=== PATIENT | male | born 1965 | race Caucasian/White ===

== ENCOUNTER 2023-06-30 12:38 | Outpatient (AMB) | payer BC, SELFPAY ==
--- NOTE | 2023-06-30 12:40 | MHC.OFFVIS ---
Intake Vital Signs 06/30/23 12:44 Height 6 ft 1.5 in Weight 291 lb BMI 37.9 BP 138/76 Blood Pressure Location Lt brachial Position Sitting Pulse 84 Intake Visit Reasons: colonoscopy screening Intake Note: Patient new consult for pre colonoscopy screening. Patient denies any GI issues. Rn Invasive Required: No Accompanied by: Self / Same As Patient Allergies No Known Allergies Allergy (Verified 06/30/23 12:40) HPI HPI Comments History of Present Illness Details 58-year-old male history of ulcerative colitis referred for screening colonoscopy in to [facility]- DX about 25-30 years ago- / [facility]- [place]- for years-he has not been taking meds for years-about 15 years. He tries to manage on his own concoction Last colonoscopy- about 7 years ago- Altagracia now retired. He maybe has pain once a year-typically no blood in the stool He has no GI complaints, normal bowel pattern good appetite PFSH Surgical History Hx of colonoscopy Social History (Updated 06/30/23 @ 12:57 by Veronica Alejo PA-C) Housing: House Patient Tobacco Use Status: Never used Tobacco e-Cigarette/Vaping Use: Never Used Second Hand Smoke Exposure: No service: No Current occupational status: employed Current occupation: self employed -[employer] Current occupational exposures/hazards: No Cognitive needs: No Hearing needs: No Vision needs: No Review of Systems Const All systems reviewed & are unremarkable except as noted in HPI and below Card Denies chest pain and Denies dyspnea Resp Denies dyspnea GI Denies abdominal pain, Denies hematochezia and Reports change in bowel habits Physical Exam Vital Signs: Last Vital Signs Pulse 84 06/30/23 12:44 BP 138/76 06/30/23 12:44 BMI result Body Mass Index 37.9 Const General: cooperative, healthy appearing, comfortable and no acute distress Orientation/consciousness: patient oriented x3 Limitations: no limitations Resp Effort & Inspection: normal respiratory effort and able to speak in complete sentences Auscultation: clear to auscultation bilaterally and no wheezes Cardio Rate: regular rate Rhythm: regular rhythm Heart sounds: S1 normal heart sound present and S2 normal heart sound present GI Palpation (GI): Soft to palpation and nontender Percussion: Yes normal to percussion Skin General skin exam: no rashes or lesions noted Neuro General: patient oriented x3 Extrem General: Yes full ROM Psych Appearance: grossly normal and well kempt Mental Status: mental status grossly normal Speech and movement: Normal speech and movement present and Clear speech present Affect: normal affect Attitude: cooperative Thought process: Normal thought process present Thought content: Normal thought content present Insight: Good insight present (Psych) Judgement: Good judgement present (Psych) Results Reviewed Results Reviewed: No labs for review, already scheduled to have labs with PCP will follow Assessment & Plan Assessment & Plan (1) Ulcerative colitis: Comment: Which GI history unclear Diagnosed UC in his 30s [place] for about 15 years however he has not had any treatment in greater than 10 years Minimal symptoms, no medication Was scheduled for colonoscopy to further assess Code(s): K51.90 - Ulcerative colitis, unspecified, without complications Plan: Colonoscopy Dr. Gee-plan of care dependent on above (2) Screening for colon cancer: Code(s): Z12.11 - Encounter for screening for malignant neoplasm of colon Plan Colonoscopy- Dr. Gee- MG prep- Orders: Orders Colonoscopy - GI Use Only 06/30/23 K51.90 - Ulcerative colitis, unspecified, without complications, Z12.11 - Encounter for screening for malignant neoplasm of colon Medications: New bisacodyl (Dulcolax (bisacodyl)) Take 4 tablets by mouth at 12:00pm the day before your procedure. 20 mg (4 x 5 mg) PO ONCE 1 day 4 tabs 0RF colonoscopy prep Z12.11 - Encounter for screening for malignant neoplasm of colon polyethylene glycol 3350 (Miralax) Take as directed by mouth the day before your procedure. 238 grams PO ONCE 1 day PRN 238 grams 0RF laxative effect Patient Instructions: A 58 y/o male hx UC-GI history is unclear. He will be scheduled for colonoscopy with Dr. Gee and plan of care will be dependent on outcome. Discussed procedure, rare risks, prep literature given He is due to have labs by PCP Coding Level of Care Code New Pt Level 3 (88427) Diagnoses Ulcerative colitis K51.90 Screening for colon cancer Z12.11 Time Spent (min) 25
[2023-06-30 12:44] VITALS: BP 138/76; PULSE 84; BMI 37.9
== END 2023-06-30 13:09 | disposition home or self-care (01) ==
LOC: HO.HGIW 12:38
PROVIDERS: PCP Nurse Practitioner Family; Visit Provider Physician Assistant
DX: Z01.818 Encounter for other preprocedural examination (principal); Z12.11 Encounter for screening for malignant neoplasm of colon; K51.90 Ulcerative colitis, unspecified, without complications
CPT/HCPCS: S0285

== ENCOUNTER → 2023-06-30 12:38 | Outpatient (BNVA) | payer BC, SELFPAY | PROVIDERS: PCP Nurse Practitioner Family; Visit Provider Physician Assistant ==

== ENCOUNTER 2023-07-14 11:32 | Outpatient (REF) | payer BC, SELFPAY ==
[2023-07-14 13:31] LABS: MANUAL DIFF FLAG NO
[2023-07-14 13:51] LABS: Basophils Absolute Auto 0.1 X10*3/uL (0.0-0.2); Basophils Percent Auto 1.1 % (0-2); Eosinophils Absolute Auto 0.2 X10*3/uL (0.0-0.4); Eosinophils Percent Auto 4.1 % (0-4); Hematocrit 38.8 % (42.0-52.0); Hemoglobin 14.2 g/dl (14.0-18.0); Imm Gran Abs Auto 0.03 X10*3/uL (0.00-0.03); Imm Gran Pct Auto 0.6 % (0.0-0.4); Lymphocytes Absolute Auto 1.5 X10*3/uL (1.2-4.9); Mean Corpuscular HGB Conc 36.6 g/dl (31.0-36.0); Mean Platelet Volume 10.5 fL (9.4-12.4); Monocytes Absolute Auto 0.6 X10*3/uL (0.1-1.2); Monocytes Percent Auto 10.4 % (2-11); Neutrophils Absolute Auto 3.1 x10*3/uL (2.0-8.3); Neutrophils Percent Auto 56.8 % (45-73); Platelet Count 260 X10*3/uL (160-400); Red Blood Count 3.84 X10*6/uL (4.60-5.80); Red Cell Distribution Width 15.2 % (11.0-16.0); White Blood Count 5.4 X10*3/uL (4.8-10.8)
[2023-07-14 14:46] LABS: Alanine Aminotransferase 21 U/L (0-40); Albumin Level 4.4 g/dL (3.5-5.0); Alkaline Phosphatase 67 U/L (39-117); Anion Gap 12 (12-20); Aspartate Amino Transferase 23 U/L (5-37); Bilirubin Total 0.6 mg/dL (0.0-1.0); Blood Urea Nitrogen 14 mg/dL (9-16); Calcium 9.5 mg/dL (8.4-10.2); Carbon Dioxide 27 mmol/L (22-29); Chloride 103 mmol/L (96-108); Cholesterol 167 mg/dL; Estimated Glomerular Filt Rate > 60; Glucose Fasting 88 mg/dL (60-99); HDL Cholesterol 58 mg/dL; LDL Cholesterol Calculated 98 mg/dl; Potassium 4.4 mmol/L (3.3-5.1); Sodium 138 mmol/L (135-145); Total Protein 7.9 g/dL (6.5-8.0); Triglycerides 58 mg/dL
[2023-07-14 14:48] LABS: TSH reflex Free T4 1.76 uIU/mL (0.32-4.0)
[2023-07-14 14:49] LABS: Appearance Urine Clear; Color Urine Yellow; Glucose Urine UA Negative (Negative); Leukocyte Esterase Urine Negative (Negative); Nitrite Urine Negative (Negative); Specific Gravity - Urine <= 1.005 (1.005-1.025); Urine Blood Negative (Negative); Urine Ketones Negative (Negative); Urine Protein Negative (Neg-Trace)
[2023-07-14 14:50] LABS: Prostate Specific Antigen Scr 0.73 ng/mL (<0.05-4.0)
== END 2023-07-14 11:33 | disposition home or self-care (01) ==
LOC: HO.HMGCLDS 11:32
PROVIDERS: PCP Nurse Practitioner Family; Visit Provider Nurse Practitioner Family
DX: Z00.00 Encounter for general adult medical examination without abnormal findings (principal); Z12.5 Encounter for screening for malignant neoplasm of prostate; D64.9 Anemia, unspecified; I10 Essential (primary) hypertension; K51.90 Ulcerative colitis, unspecified, without complications
CPT/HCPCS: 36415; 80053; 80061; 81003; 84153; 84443; 85025

== ENCOUNTER 2023-07-21 09:30 | Outpatient (AMB) | payer BC, SELFPAY ==
[2023-07-21 09:47] VITALS: BP 130/78; PULSE 56; O2SAT 97; BMI 37.6
--- NOTE | 2023-07-21 09:47 | MHC.PC.OV ---
Vital Signs 07/21/23 09:47 Height 6 ft 1.5 in Weight 289 lb 2 oz BMI 37.6 BP 130/78 Blood Pressure Location Rt brachial Position Sitting Pulse 56 Pulse Source Pulse Oximeter Pulse Oximetry (%) 97 Oxygen Delivery Method Room Air Intake Visit Reasons: 3 month follow up HTN Allergies No Known Allergies Allergy (Verified 07/21/23 09:49) Tobacco use date assessed: 07/21/23 Dental Screening Dental Screen Date: 07/21/23 Did you have a dental visit in the last 12 months?: Yes Did you have a dental problem in the last 6 months where you did not have access to dental care?: No Was dental information given to patient?: Patient has dentist HPI 3 month follow up HTN HPI Details HTN: Blood pressure is stable. Pt reports that his blood pressure at home is in the 130s/70s. Denies chest pain, shortness of breath, headache, dizziness, and blurred vision. 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 Jp Patricia, Sharee Cooper, Refugio Emery and colleagues, with an educational michelle from [employer] Review of Systems Const Reports as per HPI Physical exam (Primary Care) Vital Signs: Last Vital Signs Pulse 56 07/21/23 09:47 BP 130/78 07/21/23 09:47 Pulse Ox 97 07/21/23 09:47 Oxygen Delivery Method Room Air 07/21/23 09:47 BMI result Body Mass Index 37.6 Tobacco/Smoking Status: Tobacco use Status Tobacco use date assessed 07/21/23 07/21/23 09:52 Patient Tobacco Use Status Never used Tobacco 07/21/23 09:52 e-Cigarette/Vaping Use Never Used 07/21/23 09:52 Thrive Assessment: Date of Thrive Assessment Date Thrive assessed 04/15/23 07/21/23 09:52 Const General: cooperative Nutritional Appearance: obese Orientation/consciousness: patient oriented x3 Resp Effort & Inspection: normal respiratory effort Auscultation: clear to auscultation bilaterally Cardio Rate: regular rate Rhythm: regular rhythm Heart sounds: S1 normal heart sound present and S2 normal heart sound present Neuro General: patient oriented x3 Extrem Right lower extremity: no edema Left lower extremity: no edema Psych Appearance: grossly normal Mental Status: mental status grossly normal Speech and movement: Normal speech and movement present Affect: normal affect Attitude: cooperative Thought process: Normal thought process present Thought content: Normal thought content present Insight: Good insight present (Psych) Judgement: Good judgement present (Psych) Assessment and Plan Assessment & Plan (1) HTN (hypertension): Code(s): I10 - Essential (primary) hypertension Plan The patient agreed to the use of a medical claims examiner for this encounter. Scribed for MIRYAM Guerra by Michelle Smith medical claims examiner, on 07/21/2023 at 10:00 EST. Coding Level of Care Code Est Pt Level 3 (41314) Diagnoses HTN (hypertension) I10
== END 2023-07-21 10:14 | disposition home or self-care (01) ==
PROVIDERS: PCP Nurse Practitioner Family; Visit Provider Nurse Practitioner Family
DX: I10 Essential (primary) hypertension (principal)
CPT/HCPCS: 99213

== ENCOUNTER 2023-07-21 10:15 | Outpatient (REF) | payer BC, SELFPAY ==
[2023-07-21 13:08] LABS: MANUAL DIFF FLAG NO
[2023-07-21 13:34] LABS: Basophils Absolute Auto 0.1 X10*3/uL (0.0-0.2); Basophils Percent Auto 0.8 % (0-2); Eosinophils Absolute Auto 0.2 X10*3/uL (0.0-0.4); Eosinophils Percent Auto 3.5 % (0-4); Hematocrit 40.4 % (42.0-52.0); Hemoglobin 14.9 g/dl (14.0-18.0); Imm Gran Abs Auto 0.03 X10*3/uL (0.00-0.03); Imm Gran Pct Auto 0.5 % (0.0-0.4); Lymphocytes Absolute Auto 1.3 X10*3/uL (1.2-4.9); Mean Corpuscular HGB Conc 36.9 g/dl (31.0-36.0); Mean Corpuscular Volume 100.2 fL (80.0-98.0); Mean Platelet Volume 10.2 fL (9.4-12.4); Monocytes Absolute Auto 0.7 X10*3/uL (0.1-1.2); Monocytes Percent Auto 10.2 % (2-11); Neutrophils Absolute Auto 4.1 x10*3/uL (2.0-8.3); Platelet Count 267 X10*3/uL (160-400); Red Blood Count 4.03 X10*6/uL (4.60-5.80); Red Cell Distribution Width 14.8 % (11.0-16.0); White Blood Count 6.4 X10*3/uL (4.8-10.8)
[2023-07-21 14:00] LABS: Iron 152 mcg/dL (45-160); Percent Iron Saturation 44 % (15-50); Total Iron Binding Capacity 342 mcg/dL (228-428); Unsaturated Iron Binding 190 ug/dL
[2023-07-21 14:06] LABS: Ferritin 99 ng/mL (20-250)
[2023-07-21 14:21] LABS: Folate 12.1 ng/mL (> or = 4.0); Vitamin B12 257 pg/mL (200-900)
== END 2023-07-21 10:16 | disposition home or self-care (01) ==
LOC: HO.HMGCLDS 10:15
PROVIDERS: PCP Nurse Practitioner Family; Visit Provider Nurse Practitioner Family
DX: D64.9 Anemia, unspecified (principal)
CPT/HCPCS: 36415; 82607; 82728; 82746; 83540; 85025

== ENCOUNTER 2023-09-09 14:40 | Outpatient (REF) | payer BC, SELFPAY ==
[2023-09-09 17:47] LABS: Folate 11.6 ng/mL (> or = 4.0); Vitamin B12 296 pg/mL (200-900)
[2023-09-11 13:28] LABS: Prot Elec - Albumin 4.6 g/dL (3.8-4.8); Prot Elec - Alpha1 0.4 g/dL (0.2-0.3); Prot Elec - Alpha2 0.7 g/dL (0.5-0.9); Prot Elec - Beta 1 0.5 g/dL (0.4-0.6); Prot Elec - Beta 2 0.4 g/dL (0.2-0.5); Prot Elec - Gamma 1.3 g/dL (0.8-1.7); Prot Elec - Total Protein 7.9 g/dL (6.1-8.1)
[2023-09-11 20:43] LABS: Hematocrit 45.5 % (38.5-50.0); Hemoglobin 15.4 g/dL (13.2-17.1); MCH 31.2 pg (27.0-33.0); MCV 92.1 fL (80.0-100.0); RBC 4.94 Million/uL (4.20-5.80); RDW 12.5 % (11.0-15.0)
[2023-09-12 23:28] LABS: Intrinsic Factor Antibodies Negative (Negative)
[2023-09-14 14:03] LABS: Parietal Cell Antibody <=20.0 Unit (<=20.0)
== END 2023-09-09 14:41 | disposition home or self-care (01) ==
LOC: HO.HMGCLDS 14:40
PROVIDERS: PCP Nurse Practitioner Family; Visit Provider Nurse Practitioner Family
DX: D64.9 Anemia, unspecified (principal)
CPT/HCPCS: 36415; 82607; 82746; 83020; 83516; 84165; 85014; 85018; 85025; 85041; 86340

== ENCOUNTER 2023-10-21 08:28 | Day surgery (SDC) | payer BC, SELFPAY ==
--- NOTE | 2023-10-20 10:04 | HO.ANESPROP2 ---
Documented by User: June Berg NP 10/20/23 10:07 HPI - Anesthesia Eval Consult details Narrative: 58yo M for Colonoscopy T/C with patient 10/20/23. Pt with mild URI symptoms for weeks. Occasional cough with congestion in the morning and night. Improving. O2 sat at home 98% and HR WNL. No fevers. Explained that cannot guarantee anesthesia will proceed with case until in person evaluation. Pt verbalized understanding and plans to proceed with prep. Will alert GI office if symptoms worsen. PMFSH Active Problems Active Problems: All Active Problems (Updated 10/20/23 @ 10:00 by Aliza Jaime, CHRIS) Anemia (Acute) HTN (hypertension) (Acute) Screening for prostate cancer (Acute) Ulcerative colitis (Acute) Screening for colon cancer (Acute) Physical exam (Acute) Past Medical History Medical History HTN (hypertension) Surgical History Surgical History Hx of colonoscopy Social History (Updated 06/30/23 @ 12:57 by Veronica Alejo PA-C) Housing: House Patient Tobacco Use Status: Never used Tobacco e-Cigarette/Vaping Use: Never Used Second Hand Smoke Exposure: No Advance Directives: No Advance Directives Information Provided: Yes service: No Current occupational status: employed Current occupation: self employed -[employer] Current occupational exposures/hazards: No Cognitive needs: No Hearing needs: No Vision needs: No Meds Allergies Allergy/AdvReac Type Severity Reaction Status Date / Time No Known Allergies Allergy Verified 07/21/23 09:49 Exam Pertinent Lab Results Pertinent Lab Results: Laboratory Tests 07/14/23 09/09/23 11:47 14:46 WBC 8.0 Hgb 15.3 Hct 43.0 Plt Count 268 Sodium 138 Potassium 4.4 Chloride 103 Carbon Dioxide 27 BUN 14 Creatinine 1.06 Assessment and Plan Assessment Anesthesia Assessment: Chart Reviewed Documented by User: Kwabena Aragon MD 10/21/23 08:31 [facility] Past Medical History Medical History HTN (hypertension) Family History Family history of problems with anesthesia: No Surgical History Surgical History Hx of colonoscopy History of Problems with Anesthesia: No Social History (Updated 06/30/23 @ 12:57 by Veronica Alejo PA-C) Housing: House Patient Tobacco Use Status: Never used Tobacco e-Cigarette/Vaping Use: Never Used Second Hand Smoke Exposure: No Advance Directives: No Advance Directives Information Provided: Yes service: No Current occupational status: employed Current occupation: self employed -[employer] Current occupational exposures/hazards: No Cognitive needs: No Hearing needs: No Vision needs: No Meds Allergies Allergy/AdvReac Type Severity Reaction Status Date / Time No Known Allergies Allergy Verified 07/21/23 09:49 Exam Airway Mallampati Class: II TM Dist: >3cm Neck ROM: Limited Heart: rrr Lungs: cta Assessment and Plan Assessment Anesthesia Assessment: Anesthesia Plan Discussed Final Anesthetic Review Family History of Problems with Anesthesia: No History of Problems with Anesthesia: No NPO: Yes ASA Class: II Final Preanesthetic Review: No Changes in Pt Med Stat, Meds/Allgs Chart Reviewed, Consent Obtained/Reviewed and Anes Risks/Benef Reviewed Patient Risk: Low Procedure Risk: Low Anesthetic Plan Anesthetic Plan: MAC: and Agree w/ Assess. and Plan Disposition: Standard PACU
[2023-10-21 08:36] VITALS: BMI 36.0
--- NOTE | 2023-10-21 08:54 | MHC.SHP ---
Pre-Procedural Eval Section A Date of Service: 10/21/23 Section B Chief Complaint: Ulcerative colitis, unspecified, without complicat Relevant Family History (Specify if Yes): No Relevant Social History: Alcohol Use (cannabis us e) Present Medications: see Short Stay Collaborative assessment Medical History: Significant History (HTN (hypertension), UC) History of Previous Operations: Relevant previous surgery/procedure and date(s) (colonoscopy) Allergies: Allergies Allergy/AdvReac Type Severity Reaction Status Date / Time No Known Allergies Allergy Verified 07/21/23 09:49 Review of Systems Sugical H&P ROS: Negative: Constitution, Cardiovascular, Respiratory, Neurological, Psychiatric, Hem-Onc, Allergic/Immunologic, Gastrointestinal, Genitourinary, Musculoskeletal, Integumentary, Endocrine and Eyes/Ears/Nose/Throat Exam Surgical H&P Exam: Normal: HEENT, Normal: Heart, Normal: Lungs, Normal: Extremities, Normal: Abdomen, Normal: Skin and Normal: Neurological Plan Diagnosis/Plan: Unchanged I have reviewed the history and physical and performed a pertinent physical examination on my patient. No changes have occurred unless specified. Time Spent With Patient Time: Total time managing care of this patient today ____ minutes.
[2023-10-21] MEDS: Lactated Ringers 1,000 ML 100 ML IVCONT (09:00)
[2023-10-21 09:01] VITALS: BP 160/78; PULSE 85; RESP 16; TEMP 35.9; O2SAT 99
[2023-10-21 09:03] VITALS: BMI 36.0
--- NOTE | 2023-10-21 09:25 | W.PM.OPN ---
Operative Note Operative Note Date of Service: 10/21/23 Narrative: Operative Information Procedure Description: Colonoscopy Indication: hx of colitis, screening for CRC Anesthesia: MAC COLONOSCOPY Instrument: Olympus variable stiffness ADULT scope 190L Colonoscopy Monitoring: Vital signs and clinical assessment, continuous EKG monitoring, Pulse oximetry, Carbon Dioxide monitoring and blood pressure monitoring were done throughout the procedure. Colon withdrawal time was 14 minutes. Procedure: The patient was placed in the left lateral decubitis position and pre-procedure medications were administered. After a digital rectal examination of the ano-rectum, the video colonoscope was inserted into the rectum and advanced through the colon to the cecum/TI. The colonoscope was slowly withdrawn in a retrograde panoramic fashion and the colon mucosa was carefully examined including a retroflexed view of the rectum. Findings and interventions are described below. Procedure Difficulty: easy Findings: Terminal Ileum-normal, bx taken Cecum: mild erythema with few micro abscesses, bx taken Ascending Colon: 4-5 mm sessile polyp removed with cold forceps Transverse Colon -normal, bx taken Descending Colon:normal Sigmoid Colon: mild erythema, bx taken Rectum: Retroflexion with small internal hemorrhoids, grade I Anorectum - normal Colon preparation: [place] Bowel Preparation Scale Right colon; 2 Transverse colon: 3 Left colon; 3 (0 = Unprepared colon segment with mucosa not seen due to solid stool that cannot be cleared. 1 = Portion of mucosa of the colon segment seen, but other areas of the colon segment not well seen due to staining, residual stool and/or opaque liquid. 2 = Minor amount of residual staining, small fragments of stool and/or opaque liquid, but mucosa of colon segment seen well. 3 = Entire mucosa of colon segment seen well with no residual staining, small fragments of stool or opaque liquid) Impression and Post Procedure Diagnosis: polyp mild colitis internal hemorrhoids Plan: High fiber diet leaflet Avoid straining at stool, epsom salts and sitz bath, anusol supps or cream Repeat Colonoscopy in 1-2 years or earlier if clinically indicated, if active colitis on bx then can reconsider restarting mesalamine Above findings were reviewed with the patient and relevant handouts were provided if indicated.
[2023-10-21 10:14] VITALS: BP 121/74; PULSE 77; RESP 16; TEMP 36.7; O2SAT 96
[2023-10-21 10:29] VITALS: BP 138/85; PULSE 69; RESP 18; TEMP 36.6; O2SAT 98
== END 2023-10-21 10:57 | disposition home or self-care (01) ==
PROVIDERS: PCP Nurse Practitioner Family; Visit Provider Internal Medicine Gastroenterology
PROC: 0DJD8ZZ Inspection of Lower Intestinal Tract, Via Natural or Artificial Opening Endoscopic (ICD-10-PCS; CPT 45378; principal; 2023-10-21 10:00)
DX: Z12.11 Encounter for screening for malignant neoplasm of colon (principal); K52.89 Other specified noninfective gastroenteritis and colitis; K63.5 Polyp of colon; K62.89 Other specified diseases of anus and rectum; K64.0 First degree hemorrhoids; I10 Essential (primary) hypertension; F10.90 Alcohol use, unspecified, uncomplicated; F12.90 Cannabis use, unspecified, uncomplicated
CPT/HCPCS: 45380; 88305; J2704

== ENCOUNTER → 2023-10-21 08:28 | Outpatient (BNV) | payer BC, SELFPAY | PROVIDERS: PCP Nurse Practitioner Family; Visit Provider Internal Medicine Gastroenterology | DX: Z12.11 Encounter for screening for malignant neoplasm of colon (principal); K51.90 Ulcerative colitis, unspecified, without complications; D12.2 Benign neoplasm of ascending colon; K64.0 First degree hemorrhoids | CPT/HCPCS: 45380 ==

== ENCOUNTER 2024-06-13 15:34 | Outpatient (AMB) | payer BC, SELFPAY ==
--- NOTE | 2024-06-13 15:44 | MHC.PC.OV ---
Vital Signs 06/13/24 15:46 Height 6 ft 1.5 in Weight 293 lb BMI 38.1 BP 130/86 Blood Pressure Location Lt brachial Position Sitting Pulse 64 Pulse Source Pulse Oximeter Pulse Oximetry (%) 99 Oxygen Delivery Method Room Air Intake Visit Reasons: Annual PE Intake Note: Patient here for physical exam. Colon: 2022 due this year Allergies No Known Allergies Allergy (Verified 06/13/24 15:48) Tobacco use date assessed: 06/13/24 Dental Screening Dental Screen Date: 06/13/24 Did you have a dental visit in the last 12 months?: Yes Did you have a dental problem in the last 6 months where you did not have access to dental care?: No Was dental information given to patient?: Patient has dentist HPI Annual PE HPI Details Here for a PE. Colon screen up to date. pt denies any nocturia, urinary urgency, urinary frequency, dribbling after urination. PFSH Medical History HTN (hypertension) Surgical History Hx of colonoscopy Social History Housing: House Patient Tobacco Use Status: Never used Tobacco e-Cigarette/Vaping Use: Never Used Second Hand Smoke Exposure: No service: No Current occupational status: employed Current occupation: self employed -[employer] Current occupational exposures/hazards: No Cognitive needs: No Hearing needs: No Vision needs: No Questionnaire PHQ-9 Over the last 2 weeks, how often have you been bothered by any of the following problems? 1. Little interest or pleasure in doing things: not at all 2. Feeling down, depressed, or hopeless: not at all 3. Trouble falling or staying asleep, or sleeping too much: not at all 4. Feeling tired or having little energy: not at all 5. Poor appetite or overeating: not at all 6. Feeling bad about yourself - or that you are a failure or have let yourself or your family down: not at all 7. Trouble concentrating on things, such as reading the newspaper or watching television: not at all 8. Moving or speaking so slowly that other people could have noticed. Or the opposite - being so fidgety or restless that you have been moving around a lot more than usual: not at all 9. Thoughts that you would be better off or of hurting yourself in some way: not at all Total score: 0 Depression Screening Interpretation: Negative Depression Screening Done: Yes 30800 - PHQ-9 Billing: Yes Source: Developed by Drs. Jp Patricia, Sharee Cooper, Refugio Emery and colleagues, with an educational michelle from [employer]. Thrive Questionnaire Date Thrive assessed: 06/13/24 I am a: Patient What is your living situation today?: I have a steady place to live Within the past 12 months, did the food you bought not last and you didn't have the money to get more?: Never true Within the past 12 months, did you worry whether your food would run out before you got money to buy more?: Never true Do you have trouble paying for medicines?: No Do you have trouble getting transportation to medical appointments?: No Do you have trouble paying your heating and electricity bill?: No Do you have trouble taking care of your child, family member or friend?: No Do you have trouble with day-to-day activities such as bathing, preparing meals, shopping, managing finances, etc.?: No Are you currently unemployed and looking for a job?: No Are you interested in more education?: No Please select the resources that you would like help with: Housing/Assisted Currently or been in a relationship where the following occur: No concerns reported THRIVE Score: 0 AUDIT C Alcohol Use Questionnaire (AUDIT-C) 1. How often do you have a drink containing alcohol?: 4 or more times a week 2. How many drinks containing alcohol do you have on a typical day when you are drinking?: 1 or 2 3. How often do you have six or more drinks on one occasion?: Monthly Total Score: 6 ANA MARIA-7 AMB Questionnaire ANA MARIA-7 Date ANA MARIA - 7 assessed: 06/13/24 Feeling nervous, anxious, or on edge: 0 = Not at all Not being able to stop or control worryin = Not at all Worrying too much about different things: 0 = Not at all Trouble relaxin = Not at all Being so restless that it is hard to sit still: 0 = Not at all Becoming easily annoyed or irritable: 0 = Not at all Feeling afraid as if something awful might happen: 0 = Not at all Total ANA MARIA-7 score (0-4 normal; 5-9 mild; 10-14 moderate; 15-21 severe): 0 Source: Developed by Drs. Jp Patricia, Sharee Cooper, Refugio Emery and colleagues, with an educational michelle from [employer]. ANA MARIA-7 Assessment Billing ANA MARIA-7 Assessment Tool: ANA MARIA-7 Assessment 66633 Review of Systems Const Denies chills and Denies fever(s) Eyes Denies blurry vision ENT Denies vertigo, Denies dizziness and Denies sore throat Card Denies chest pain at rest, Denies chest pain with activity, Denies diaphoresis, Denies dyspnea and Denies dyspnea on exertion Resp Denies cough, Denies dyspnea, Denies dyspnea on exertion and Denies wheezing GI Denies abdominal pain, Denies melena, Denies hematochezia, Denies constipation, Denies diarrhea and Denies loose stools Denies hematuria Musc Denies numbness and Denies tingling Skin/Breast Denies lesions Neuro Denies vertigo, Denies dizziness, Denies numbness and Denies tingling Psych Denies anxiety, Denies depression, Denies homicidal ideation, Denies suicidal ideation and Denies other (substance abuse) Aller/Immun Denies wheezing Physical exam (Primary Care) Vital Signs: Last Vital Signs Pulse 64 06/13/24 15:46 BP 130/86 06/13/24 15:46 Pulse Ox 99 06/13/24 15:46 Oxygen Delivery Method Room Air 06/13/24 15:46 BMI result Body Mass Index 38.1 Tobacco/Smoking Status: Tobacco use Status Tobacco use date assessed 06/13/24 06/13/24 15:51 Patient Tobacco Use Status Never used Tobacco 06/13/24 15:46 e-Cigarette/Vaping Use Never Used 06/13/24 15:46 PHQ-9: PHQ-9 Score PHQ-9: Total score 0 06/13/24 15:51 Depression Screening Interpretation: Negative Thrive Assessment: Date of Thrive Assessment Date Thrive assessed 06/13/24 06/13/24 15:46 Currently or been in a relationship where the following occur: No concerns reported Const General: cooperative Nutritional Appearance: well nourished Orientation/consciousness: patient oriented x3 HENMT Head: Yes normal to inspection, Yes normocephalic and Yes atraumatic Ears: TM normal on the right and TM normal on the left Eyes General: appearance normal, both eyes and all related structures Alignment and Position: alignment normal and position normal Neck Neck: Yes normal visual inspection and Yes no lymphadenopathy Resp Effort & Inspection: normal respiratory effort Auscultation: clear to auscultation bilaterally Cardio Rate: regular rate Rhythm: regular rhythm Heart sounds: S1 normal heart sound present, S2 normal heart sound present and no murmurs GI Palpation (GI): Soft to palpation and nontender Auscultation: normal bowel sounds Male General Exam: Yes normal external exam Penis: normal penis Scrotum: scrotum normal, testes descended bilaterally and no inguinal hernias Testes: no testicular mass Skin Rashes: no rashes Neuro General: patient oriented x3, moves all extremities, no focal motor deficits and deep tendon reflexes 2+ bilaterally Romberg Test: Negative Extrem Right lower extremity: no edema Left lower extremity: no edema Psych Affect: normal affect Attitude: cooperative Thought process: Normal thought process present Assessment and Plan Assessment & Plan (1) Physical exam: Code(s): Z00.00 - Encounter for general adult medical examination without abnormal findings Plan: labs ordered (2) Screening for prostate cancer: Code(s): Z12.5 - Encounter for screening for malignant neoplasm of prostate Orders: Orders Comprehensive [place]. Panel Fast Today Z00.00 - Encounter for general adult medical examination without abnormal findings Prostate Specific Antigen Scr Today Z12.5 - Encounter for screening for malignant neoplasm of prostate Complete Blood Count Auto Diff Today Z00.00 - Encounter for general adult medical examination without abnormal findings TSH reflex Free T4 Today Z00.00 - Encounter for general adult medical examination without abnormal findings UA CC w/rflx Micro + Cult Today Z00.00 - Encounter for general adult medical examination without abnormal findings Lipid Panel Today Z00.00 - Encounter for general adult medical examination without abnormal findings Coding Level of Care Code Est Pt Prev Care 40-64y(78206) Diagnoses Physical exam Z00.00 Screening for prostate cancer Z12.5 Additional Codes ANA MARIA-7 Assessment Billing - ANA MARIA-7 Assessment Tool: ANA MARIA-7 Assessment [id number] ([id number])
[2024-06-13 15:46] VITALS: BP 130/86; PULSE 64; O2SAT 99; BMI 38.1
== END 2024-06-13 17:04 | disposition home or self-care (01) ==
PROVIDERS: Visit Provider Nurse Practitioner Family
DX: Z00.00 Encounter for general adult medical examination without abnormal findings (principal); Z12.5 Encounter for screening for malignant neoplasm of prostate
CPT/HCPCS: 99396

== ENCOUNTER 2024-07-20 08:44 | Outpatient (REF) | payer BC, SELFPAY ==
[2024-07-20 10:33] LABS: Appearance Urine Clear; Color Urine Yellow; Glucose Urine UA Negative (Negative); Leukocyte Esterase Urine Negative (Negative); Nitrite Urine Negative (Negative); PH 7.5 (5.0-9.0); Urine Blood Negative (Negative); Urine Ketones Negative (Negative); Urine Protein Negative (Neg-Trace)
[2024-07-20 11:09] LABS: MANUAL DIFF FLAG NO
[2024-07-20 11:16] LABS: Basophils Absolute Auto 0.1 X10*3/uL (0.0-0.2); Basophils Percent Auto 0.9 % (0-2); Eosinophils Absolute Auto 0.3 X10*3/uL (0.0-0.4); Eosinophils Percent Auto 4.8 % (0-4); Hemoglobin 14.4 g/dl (14.0-18.0); Imm Gran Abs Auto 0.04 X10*3/uL (0.00-0.03); Imm Gran Pct Auto 0.7 % (0.0-0.4); Lymphocytes Absolute Auto 1.6 X10*3/uL (1.2-4.9); Lymphocytes Percent Auto 28.9 % (20-40); Mean Corpuscular Hemoglobin 36.2 pg (27.0-33.0); Mean Corpuscular Volume 100.5 fL (80.0-98.0); Monocytes Absolute Auto 0.5 X10*3/uL (0.1-1.2); Neutrophils Absolute Auto 2.9 x10*3/uL (2.0-8.3); Neutrophils Percent Auto 54.7 % (45-73); Platelet Count 254 X10*3/uL (160-400); Red Blood Count 3.98 X10*6/uL (4.60-5.80); Red Cell Distribution Width 14.5 % (11.0-16.0); White Blood Count 5.4 X10*3/uL (4.8-10.8)
[2024-07-20 11:36] LABS: Alanine Aminotransferase 22 U/L (0-40); Albumin Level 4.1 g/dL (3.5-5.0); Alkaline Phosphatase 75 U/L (39-117); Anion Gap 10 (12-20); Aspartate Amino Transferase 25 U/L (5-37); Bilirubin Total 0.5 mg/dL (0.0-1.0); Blood Urea Nitrogen 22 mg/dL (9-16); Calcium 9.2 mg/dL (8.4-10.2); Carbon Dioxide 28 mmol/L (22-29); Chloride 103 mmol/L (96-108); Cholesterol 176 mg/dL (<200); Estimated Glomerular Filt Rate > 60; Glucose Fasting 104 mg/dL (60-99); HDL Cholesterol 62 mg/dL (>40); LDL Cholesterol Calculated 103 mg/dL (<100); Potassium 4.4 mmol/L (3.3-5.1); Sodium 137 mmol/L (135-145); Total Protein 7.6 g/dL (6.5-8.0); Triglycerides 56 mg/dL (<150)
[2024-07-20 11:51] LABS: TSH reflex Free T4 2.34 uIU/mL (0.32-4.0)
[2024-07-20 11:52] LABS: Prostate Specific Antigen Scr 0.66 ng/mL (<0.05-4.0)
== END 2024-07-20 08:45 | disposition home or self-care (01) ==
LOC: HO.HMGCLDS 08:44
PROVIDERS: PCP Nurse Practitioner Family; Visit Provider Nurse Practitioner Family
DX: Z00.00 Encounter for general adult medical examination without abnormal findings (principal); Z12.5 Encounter for screening for malignant neoplasm of prostate; Z13.6 Encounter for screening for cardiovascular disorders
CPT/HCPCS: 36415; 80053; 80061; 81003; 84153; 84443; 85025

== ENCOUNTER 2025-07-06 15:49 | Outpatient (AMB) | payer BC, SELFPAY ==
--- NOTE | 2025-07-06 15:52 | MHC.PC.OV ---
Vital Signs 07/06/25 15:54 Height 6 ft 1.5 in Weight 302 lb BMI 39.3 BP 148/92 H Blood Pressure Location Rt brachial Position Sitting Pulse 64 Pulse Oximetry (%) 98 Oxygen Delivery Method Room Air Intake Visit Reasons: PE Clinical Services Director Required: No Accompanied by: Self / Same As Patient Allergies No Known Allergies Allergy (Verified 07/06/25 15:56) Medication List - Last Reconciled 07/06/25 by KAYLAN Gamboa losartan 25 mg PO DAILY mecobalamin (vitamin B12) mcg PO multivitamin 1 tab PO DAILY sildenafil 25 mg PO DAILY PRN Tobacco use date assessed: 07/06/25 Dental Screening Dental Screen Date: 07/06/25 Did you have a dental visit in the last 12 months?: Yes Did you have a dental problem in the last 6 months where you did not have access to dental care?: No Was dental information given to patient?: Patient has dentist HPI PE HPI Details History of Present Illness The patient is a 60-year-old male presenting with a physical exam and management of chronic conditions. He has a history of ulcerative colitis, which has been well controlled. He is due for a colon cancer screening this fall. The patient is hypertensive today, and a low dose of losartan is being initiated. He is advised to monitor his blood pressure and report if it consistently exceeds 140/90 mmHg. The patient is obese and has been encouraged to pursue weight loss strategies. Health Maintenance - Colon cancer screening scheduled for fall Social History Review of Systems - Cardiovascular: Denies chest pain - Respiratory: Denies shortness of breath - Gastrointestinal: Denies abdominal pain, blood in stool, constipation, diarrhea - Psychiatric: Denies suicidal ideation, homicidal ideation - Genitourinary: Denies urinary issues Physical Exam General: Cooperative, healthy appearing, comfortable, no acute distress and well developed, obese Orientation: Patient oriented x3 Limitations: No limitations Head: Normal to inspection Ears: Hearing grossly normal bilaterally Nose: Normal external nose present Face and sinus: Normal facial exam Eyes: Appearance normal, both eyes and all related structures Neck: Normal visual inspection and Yes full ROM Respiratory: Normal respiratory effort and able to speak in complete sentences. Clear to auscultation bilaterally Cardiovascular: Regular rate and rhythm. Normal S1 and S2 GI: Normal to inspection. Soft to palpation and nontender : Testicles without masses/lesions and no hernias appreciated Skin: No rashes or lesions noted Neuro: Patient oriented x3 Extremities: Normal to inspection Results Plan The patient will be started on a low dose of losartan to manage hypertension, with instructions to monitor blood pressure regularly and report if it exceeds 140/90 mmHg. A referral for colon cancer screening is planned for the fall, given the patient's history of ulcerative colitis. Weight loss strategies have been recommended to address obesity, and the patient is aware of the need for lifestyle modifications. Discussion Notes I discussed with the patient the initiation of losartan for hypertension management and the importance of regular blood pressure monitoring. We also talked about the upcoming colon cancer screening and the need for weight loss to manage obesity. Patient Instructions - Start taking losartan as prescribed. - Monitor blood pressure regularly and report if it exceeds 140/90 mmHg. - Prepare for colon cancer screening in the fall. - Follow weight loss strategies and lifestyle modifications. [facility] Medical History HTN (hypertension) Surgical History Hx of colonoscopy Social History Housing: House Patient Tobacco Use Status: Never used Tobacco e-Cigarette/Vaping Use: Never Used Second Hand Smoke Exposure: No service: No Current occupational status: employed Current occupation: self employed -[employer] Current occupational exposures/hazards: No Cognitive needs: No Hearing needs: No Vision needs: No Questionnaire PHQ-9 Over the last 2 weeks, how often have you been bothered by any of the following problems? 1. Little interest or pleasure in doing things: not at all 2. Feeling down, depressed, or hopeless: not at all 3. Trouble falling or staying asleep, or sleeping too much: not at all 4. Feeling tired or having little energy: not at all 5. Poor appetite or overeating: not at all 6. Feeling bad about yourself - or that you are a failure or have let yourself or your family down: not at all 7. Trouble concentrating on things, such as reading the newspaper or watching television: not at all 8. Moving or speaking so slowly that other people could have noticed. Or the opposite - being so fidgety or restless that you have been moving around a lot more than usual: not at all 9. Thoughts that you would be better off or of hurting yourself in some way: not at all Total score: 0 Depression Screening Interpretation: Negative Depression Screening Done: Yes [id number] - PHQ-9 Billing: Yes Source: Developed by Drs. Jp Patricia, Sharee Cooper, Refugio Emery and colleagues, with an educational michelle from [employer], [employer]. Thrive Questionnaire Date Thrive assessed: 07/05/25 I am a: Patient What is your living situation today?: I have a steady place to live Within the past 12 months, did the food you bought not last and you didn't have the money to get more?: Never true Within the past 12 months, did you worry whether your food would run out before you got money to buy more?: Never true Do you have trouble paying for medicines?: No Do you have trouble getting transportation to medical appointments?: No Do you have trouble paying your heating and electricity bill?: No Do you have trouble taking care of your child, family member or friend?: No Do you have trouble with day-to-day activities such as bathing, preparing meals, shopping, managing finances, etc.?: No Are you currently unemployed and looking for a job?: No Are you interested in more education?: No Please select the resources that you would like help with: None Currently or been in a relationship where the following occur: No concerns reported THRIVE Score: 0 AUDIT C Alcohol Use Questionnaire (AUDIT-C) 1. How often do you have a drink containing alcohol?: 4 or more times a week 2. How many drinks containing alcohol do you have on a typical day when you are drinking?: 3 or 4 3. How often do you have six or more drinks on one occasion?: Weekly Total Score: 8 Score Reviewed/Action Taken: Yes ANA MARIA-7 AMB Questionnaire ANA MARIA-7 Date ANA MARIA - 7 assessed: 07/06/25 Feeling nervous, anxious, or on edge: 0 = Not at all Not being able to stop or control worryin = Not at all Worrying too much about different things: 0 = Not at all Trouble relaxin = Not at all Being so restless that it is hard to sit still: 0 = Not at all Becoming easily annoyed or irritable: 0 = Not at all Feeling afraid as if something awful might happen: 0 = Not at all Total ANA MARIA-7 score (0-4 normal; 5-9 mild; 10-14 moderate; 15-21 severe): 0 Source: Developed by Drs. Jp Patricia, Sharee Cooper, Refugio Emery and colleagues, with an educational michelle from [employer], [employer]. ANA MARIA-7 Assessment Billing ANA MARIA-7 Assessment Tool: ANA MARIA-7 Assessment 22767 Physical exam (Primary Care) Vital Signs: Last Vital Signs Pulse 64 07/06/25 15:54 BP 148/92 H 07/06/25 15:54 Pulse Ox 98 07/06/25 15:54 Oxygen Delivery Method Room Air 07/06/25 15:54 BMI result Body Mass Index 39.3 Tobacco/Smoking Status: Tobacco use Status Tobacco use date assessed 07/06/25 07/06/25 15:53 Patient Tobacco Use Status Never used Tobacco 07/06/25 15:53 e-Cigarette/Vaping Use Never Used 07/06/25 15:53 PHQ-9: PHQ-9 Score PHQ-9: Total score 0 07/06/25 16:00 Depression Screening Interpretation: Negative Thrive Assessment: Date of Thrive Assessment Date Thrive assessed 07/05/25 07/06/25 15:53 Currently or been in a relationship where the following occur: No concerns reported Coding Level of Care Code Est Pt Level 3 (90270) Est Pt Prev Care 40-64y(90523) Diagnoses Ulcerative colitis K51.90 Screening for colon cancer Z12.11 Encounter for routine adult physical exam with abnormal findings Z00.01 HTN (hypertension) I10 B12 deficiency E53.8 Screening for prostate cancer Z12.5 Additional Codes ANA MARIA-7 Assessment Billing - ANA MARIA-7 Assessment Tool: ANA MARIA-7 Assessment 14210 ([id number]) PHQ-9 - 46402 - PHQ-9 Billing: Yes ([id number]) Assessment & Plan Assessment & Plan (1) Ulcerative colitis: Code(s): K51.90 - Ulcerative colitis, unspecified, without complications Category: Medical (2) Screening for colon cancer: Code(s): Z12.11 - Encounter for screening for malignant neoplasm of colon Category: Medical (3) Encounter for routine adult physical exam with abnormal findings: Code(s): Z00.01 - Encounter for general adult medical examination with abnormal findings Category: Medical (4) HTN (hypertension): Code(s): I10 - Essential (primary) hypertension Category: Medical (5) B12 deficiency: Code(s): E53.8 - Deficiency of other specified B group vitamins Category: Medical (6) Screening for prostate cancer: Code(s): Z12.5 - Encounter for screening for malignant neoplasm of prostate Category: Medical Plan . Orders: Orders TSH reflex Free T4 Today I10 - Essential (primary) hypertension, Z00. - Encounter for general adult medical examination with abnormal findings UA CC w/rflx Micro + Cult Today I10 - Essential (primary) hypertension, Z00. - Encounter for general adult medical examination with abnormal findings Lipid Panel Today I10 - Essential (primary) hypertension, Z00. - Encounter for general adult medical examination with abnormal findings Vitamin B12 and Folate Today E53.8 - Deficiency of other specified B group vitamins Complete Blood Count Auto Diff Today I10 - Essential (primary) hypertension, Z00.01 - Encounter for general adult medical examination with abnormal findings Comprehensive Lucas. Panel Fast Today I10 - Essential (primary) hypertension, Z00.01 - Encounter for general adult medical examination with abnormal findings Prostate Specific Antigen Scr Today Z12.5 - Encounter for screening for malignant neoplasm of prostate Referrals Gastroenterology Referral K51.90 - Ulcerative colitis, unspecified, without complications, Z12.11 - Encounter for screening for malignant neoplasm of colon Medications: New losartan 25 mg PO DAILY 90 tabs 0RF
--- OUTSIDE RECORDS SUMMARY | 2025-07-06 15:52 | XMS_ITS | Clinical Summary ---
Author Organization [facility] Address [address] [place] [address] Care Team Providers Care Live Out Nanny Name Role Phone Unavailable Primary Care Provider Unavailabl e Social History Tobacco Use Types Packs/Day Years Used Date Smoking Tobacco: Never Assessed Sex and Gender Information Value Date Recorded Sex Assigned at Not on file Legal Sex Male 8:31 PM EDT Gender Identity Not on file Sexual Orientation Not on file Plan of Treatment Health Maintenance Due Date Last Done Comments Hepatitis C Screening 1967 DTaP/Tdap/Td (1 - Tdap) 1985 Hep B (1 of 3 - 19+ 3-dose series) 1986 Pneumococcal 50+ years (1 of 1 - PCV) 2017 Zoster (Shingrix) (1 of 2) 2017 COVID-19 Vaccine (2023-2 5 season) 2024 Influenza (#1) 2025 HPV Vaccine (No Doses Required) Completed Hep A Aged Out No longer eligi ble based on patient's age to complete this topic Hib Aged Out No longer eligi ble based on patient's age to complete this topic Meningococcal ACWY Aged Out No longer eligible based on patient's age to complete this topic
[2025-07-06 15:54] VITALS: BP 148/92; PULSE 64; O2SAT 98; BMI 39.3
== END 2025-07-06 16:42 | disposition home or self-care (01) ==
LOC: HO.HMCC 15:50
PROVIDERS: PCP Nurse Practitioner Family; Visit Provider Nurse Practitioner Family
DX: Z00.01 Encounter for general adult medical examination with abnormal findings (principal); I10 Essential (primary) hypertension; K51.90 Ulcerative colitis, unspecified, without complications; Z12.11 Encounter for screening for malignant neoplasm of colon; E53.8 Deficiency of other specified B group vitamins; Z12.5 Encounter for screening for malignant neoplasm of prostate

== ENCOUNTER → 2025-07-06 15:49 | Outpatient (BNVA) | payer BC, SELFPAY | PROVIDERS: PCP Nurse Practitioner Family; Visit Provider Nurse Practitioner Family | DX: Z00.01 Encounter for general adult medical examination with abnormal findings (principal); K51.90 Ulcerative colitis, unspecified, without complications; I10 Essential (primary) hypertension; E66.9 Obesity, unspecified; E53.8 Deficiency of other specified B group vitamins | CPT/HCPCS: 96127 ==

== ENCOUNTER 2025-09-07 14:35 | Outpatient (AMB) | payer BC, SELFPAY ==
[2025-09-07 14:40] VITALS: BP 157/75; PULSE 67; O2SAT 98; BMI 40.0
--- NOTE | 2025-09-07 14:40 | MHC.OFFVIS ---
Vital Signs 09/07/25 14:40 Height 6 ft 1.5 in Weight 307 lb BMI 40.0 BP 157/75 H Blood Pressure Location Lt brachial Position Sitting Pulse 67 Pulse Oximetry (%) 98 Oxygen Delivery Method Room Air Intake Visit Reasons: Ulverative Colitis and Pre Colonoscopy screening Intake Note: Patient complex follow up for Ulverative Colitis and Pre Colonoscopy recall, Veronica pt mica 06/30/23 and last Baldwin was 10/22/2023 by Gerard Patient cc: hx of hemorrhoid, denies any other GI issues. Pack Worker Supervisor Required: No Accompanied by: Self / Same As Patient Allergies No Known Allergies Allergy (Verified 09/07/25 14:39) Medication List - Last Reconciled 09/07/25 by Iris Bowers CNP losartan 25 mg PO DAILY mecobalamin (vitamin B12) mcg PO multivitamin 1 tab PO DAILY sildenafil 25 mg PO DAILY PRN HPI HPI Ulverative Colitis and Pre Colonoscopy screening: Details: Patient is a 60-year-old male with PMH of HTN, UC. F/u for surveillance of long-standing ulcerative colitis; reports no active GI symptoms. Concern for hemorrhoidal discomfort following prolonged travel. Patient with a 33-year history of ulcerative colitis, previously severe but now stable off meds for years. Reports prior positive lifestyle changes with remission of colitis. Recent colonoscopy (Sep 2023) revealed mild chronic colitis, internal hemorrhoids, and two benign hyperplastic polyps. At visit, describes mild, intermittent hemorrhoidal discomfort?improved with home remedies (suppositories, witch ivory wipes) following a two-week road trip involving prolonged sitting. No recent rectal bleeding. Bowel movements formed and regular, 1?2x/day. Appetite robust. Past episode of mild COVID-19 in May (runny nose, afebrile). No current medication for colitis. Notable comorbidities include hypertension on losartan. Patient denies: fever/chills, n/v, appetite changes, regurgitation, dysphasia, unintentional wt loss, ab pain or melena/hematochezia. Social hx: -ETOH use, 1-2 beers/night -marigjuena nighly, denite other recreational drug use -non-smoker nicotine dependence, cessation [] - family hx as below -denies personal hx of CA -denies significant cardiopulmonary history -tolerated anesthesia in the past without difficulty. [facility] Medical History (Updated 10/09/25 @ 15:31 by Iris Bowers CNP) Hemorrhoids HTN (hypertension) Surgical History Hx of colonoscopy Social History Housing: House Patient Tobacco Use Status: Never used Tobacco e-Cigarette/Vaping Use: Never Used Second Hand Smoke Exposure: No service: No Current occupational status: employed Current occupation: self employed -[employer] Current occupational exposures/hazards: No Cognitive needs: No Hearing needs: No Vision needs: No Review of Systems Const Reports as per HPI ENT Reports as per HPI Card Reports as per HPI Resp Reports as per HPI GI Reports as per HPI Reports as per HPI Physical Exam Vital Signs: Last Vital Signs Pulse 67 09/07/25 14:40 BP 157/75 H 09/07/25 14:40 Pulse Ox 98 09/07/25 14:40 Oxygen Delivery Method Room Air 09/07/25 14:40 BMI result Body Mass Index 40.0 Const General: healthy appearing, no acute distress and well developed Nutritional Appearance: obese Orientation/consciousness: patient oriented x3 HEENT Head: Yes normal to inspection, Yes normocephalic and Yes atraumatic Face and sinus: Yes normal facial exam Eyes General: appearance normal, both eyes and all related structures Neck Neck: Yes normal visual inspection Resp Effort & Inspection: normal respiratory effort, able to speak in complete sentences, no tracheal deviation and symmetric chest movement Auscultation: clear to auscultation bilaterally Cardio Jugular venous distension: no JVD GI Inspection: Yes normal to inspection, No distended and Yes obesity Palpation (GI): Soft to palpation, not firm, nontender and No hepatosplenomegaly present Auscultation: normal bowel sounds Rectal Exam - Male: Yes deferred Neuro General: patient oriented x3 Gait exam (Neuro): Normal gait present Psych Appearance: grossly normal Mental Status: mental status grossly normal Speech and movement: Normal speech and movement present Affect: normal affect Attitude: cooperative Thought process: Normal thought process present Thought content: Normal thought content present Insight: Good insight present (Psych) Judgement: Good judgement present (Psych) Results Reviewed Results Reviewed: Operative Note Date of Service: 10/21/23 Narrative: Operative Information Procedure Description: Colonoscopy Indication: hx of colitis, screening for CRC Anesthesia: MAC COLONOSCOPY Instrument: Olympus variable stiffness ADULT scope 190L Colonoscopy Monitoring: Vital signs and clinical assessment, continuous EKG monitoring, Pulse oximetry, Carbon Dioxide monitoring and blood pressure monitoring were done throughout the procedure. Colon withdrawal time was 14 minutes. Procedure: The patient was placed in the left lateral decubitis position and pre-procedure medications were administered. After a digital rectal examination of the ano-rectum, the video colonoscope was inserted into the rectum and advanced through the colon to the cecum/TI. The colonoscope was slowly withdrawn in a retrograde panoramic fashion and the colon mucosa was carefully examined including a retroflexed view of the rectum. Findings and interventions are described below. Procedure Difficulty: easy Findings: Terminal Ileum-normal, bx taken Cecum: mild erythema with few micro abscesses, bx taken Ascending Colon: 4-5 mm sessile polyp removed with cold forceps Transverse Colon -normal, bx taken Descending Colon:normal Sigmoid Colon: mild erythema, bx taken Rectum: Retroflexion with small internal hemorrhoids, grade I Anorectum - normal Colon preparation: [place] Bowel Preparation Scale Right colon; 2 Transverse colon: 3 Left colon; 3 (0 = Unprepared colon segment with mucosa not seen due to solid stool that cannot be cleared. 1 = Portion of mucosa of the colon segment seen, but other areas of the colon segment not well seen due to staining, residual stool and/or opaque liquid. 2 = Minor amount of residual staining, small fragments of stool and/or opaque liquid, but mucosa of colon segment seen well. 3 = Entire mucosa of colon segment seen well with no residual staining, small fragments of stool or opaque liquid) Impression and Post Procedure Diagnosis: polyp mild colitis internal hemorrhoids Plan: High fiber diet leaflet Avoid straining at stool, epsom salts and sitz bath, anusol supps or cream Repeat Colonoscopy in 1-2 years or earlier if clinically indicated, if active colitis on bx then can reconsider restarting mesalamine PATHOLOGY: Collected: 10/21/23 Location: [facility] Received: 10/21/23 Diagnosis A. Terminal ileum, biopsy: Terminal ileal mucosa within normal limits. B. Cecum, biopsy: Colonic mucosa within normal limits. C. Colon, ascending, biopsy: Colonic mucosa within normal limits. D. Colon, ascending, polypectomy: Colonic mucosa with mild surface hyperplastic changes. E. Colon, transverse, polypectomy: Hyperplastic mucosal polyp. F. Colon, left, biopsy: Chronic, mildly active, colitis. G. Rectum, biopsy: Mildly active proctitis. COMMENT: No dysplasia is identified. Clinical History Pre-Op Dx: UC Post-Op Dx: Polyp, hemorrhoids, mild colitis Assessment & Plan Assessment & Plan (1) Ulcerative colitis: Comment: 10/21/23 colonoscopy complete with good prep- 4-5 mm Hyperplastic polyp (ascending, transverse), mild colitis, internal hemorrhoids Code(s): K51.90 - Ulcerative colitis, unspecified, without complications Category: Medical Qualifiers: Digestive disease complication type: without complication Ulcerative colitis location: unspecified ulcerative colitis location Qualified Code(s): K51.90 - Ulcerative colitis, unspecified, without complications Plan: History, current remission, stable colonoscopic findings; absence of symptoms; no current therapy required Additional Testing: Routine surveillance colonoscopy per protocol?order sent, Miralax-based prep outlined. Instructions for Gatorade purchase and clear liquid diet given. Patient educated on scheduling process, procedure preparation, including avoiding certain foods and ensuring clear liquid intake Advised on necessity for ride post-procedure due to sedation. Medication Management: No interventions needed; continue current regimen Lifestyle Recommendations: Maintain anti-inflammatory dietary pattern; avoid triggers Follow-Up: Pt opted for follow up after Colonoscopy only if needed. Continue 2 yrs surveillance or sooner if symptoms recur; contact GI if change in bowel pattern, bleeding, or new sx (2) Hemorrhoids: Code(s): K64.9 - Unspecified hemorrhoids Category: Medical Qualifiers: Hemorrhoid type: unspecified Qualified Code(s): K64.9 - Unspecified hemorrhoids Plan: Exacerbation post-prolonged sitting/travel; improvement with conservative treatment; no bleeding Additional Testing: None indicated unless sx worsen or bleeding recurs Medication Management: Continue topical agents/wipes prn Lifestyle Recommendations: Minimize prolonged sitting, continue supportive care, hydrate, high-fiber diet Follow-Up: Self-monitor; notify office if pain, bleeding, or new sx Plan Follow-up after colonoscopy as warranted or sooner as needed Time: I spent a total of 30 minutes on the date of encounter which includes: Preparing to see the patient (reviewed previous documentation, test results and medical history) Performing a medically appropriate exam and/or evaluation Ordering medications, tests, and procedures Documenting clinical information in the health record Orders: Referrals GI Procedure Notification K51.90 - Ulcerative colitis, unspecified, without complications, Z12.11 - Encounter for screening for malignant neoplasm of colon Medications: New polyethylene glycol 3350 (Miralax) per colonoscopy prep instructions 238 grams PO ONCE 238 grams 0RF bisacodyl Take per colonoscopy instructions 5 mg PO ONCE 4 tabs 0RF Coding Level of Care Code Established Pt Est Pt Level 3 (37113) Patient Type Established Diagnoses Ulcerative colitis without complications, unspecified location K51.90 Digestive disease complication type: without complication Ulcerative colitis location: unspecified ulcerative colitis location Hemorrhoids, unspecified hemorrhoid type K64.9 Hemorrhoid type: unspecified
== END 2025-09-07 15:10 | disposition home or self-care (01) ==
LOC: HO.HGI 14:36
PROVIDERS: PCP Nurse Practitioner Family; Visit Provider Nurse Practitioner Family
DX: K51.90 Ulcerative colitis, unspecified, without complications (principal); K64.9 Unspecified hemorrhoids
CPT/HCPCS: 99213

== ENCOUNTER 2025-09-29 08:26 | Outpatient (REF) | payer BC, SELFPAY ==
--- OUTSIDE RECORDS SUMMARY | 2025-09-29 08:41 | XMS_ITS | Clinical Summary ---
Author Organization [facility] Address [address] [place] [address] Care Team Providers Care Juke Box Mechanic Name Role Phone Unavailable Primary Care Provider [...] (Shingrix) (1 of 2) 2017 COVID-19 Vaccine (2024-2 6 season) 2025 Influenza (#1) 2025 HPV Vaccine (No Doses Required) Completed Hep A Aged Out No longer eligi ble based on patient's age to complete this topic Hib Aged Out No longer eligi ble based on patient's age to complete this topic Meningococcal ACWY Aged Out No longer eligible based on patient's age to complete this topic
[2025-09-29 10:20] LABS: MANUAL DIFF FLAG NO
[2025-09-29 10:37] LABS: Hematocrit 39.4 % (42.0-52.0); Hemoglobin 14.1 g/dl (14.0-18.0); Imm Gran Abs Auto 0.02 X10*3/uL (0.00-0.03); Imm Gran Pct Auto 0.3 % (0.0-0.4); Lymphocytes Absolute Auto 1.6 X10*3/uL (1.2-4.9); Mean Corpuscular HGB Conc 35.8 g/dl (31.0-36.0); Mean Corpuscular Hemoglobin 36.2 pg (27.0-33.0); Mean Corpuscular Volume 101.3 fL (80.0-98.0); NRBC Abs Auto 0.000 X10*3/uL (0.0-0.012); NRBC Pct Auto 0.0 /100WBC (0.0-0.2); Platelet Count 242 X10*3/uL (160-400); Red Blood Count 3.89 X10*6/uL (4.60-5.80); White Blood Count 6.1 X10*3/uL (4.8-10.8)
[2025-09-29 10:47] LABS: Appearance Urine Clear; Glucose Urine UA Negative (Negative); PH 6.5 (5.0-9.0); Specific Gravity - Urine <= 1.005 (1.005-1.025)
[2025-09-29 11:04] LABS: Alanine Aminotransferase 27 U/L (0-40); Albumin Level 4.4 g/dL (3.5-5.0); Alkaline Phosphatase 85 U/L (39-117); Anion Gap 10 (12-20); Aspartate Amino Transferase 28 U/L (5-37); Blood Urea Nitrogen 17 mg/dL (9-16); Calcium 8.8 mg/dL (8.4-10.2); Carbon Dioxide 27 mmol/L (22-29); Chloride 103 mmol/L (96-108); Cholesterol 164 mg/dL (<200); Estimated Glomerular Filt Rate > 60; HDL Cholesterol 48 mg/dL (>40); Potassium 3.9 mmol/L (3.3-5.1); Sodium 136 mmol/L (135-145); Total Protein 7.6 g/dL (6.5-8.0); Triglycerides 66 mg/dL (<150)
[2025-09-29 11:30] LABS: Folate 11.7 ng/mL (> or = 4.0); Vitamin B12 932 pg/mL (200-900)
== END 2025-09-29 08:27 | disposition home or self-care (01) ==
LOC: HO.HMGCLDS 08:26
PROVIDERS: PCP Nurse Practitioner Family; Visit Provider Nurse Practitioner Family
DX: Z00.01 Encounter for general adult medical examination with abnormal findings (principal); Z12.5 Encounter for screening for malignant neoplasm of prostate; I10 Essential (primary) hypertension; E53.8 Deficiency of other specified B group vitamins
CPT/HCPCS: 36415; 80053; 80061; 81003; 82607; 82746; 84153; 84443; 85025